=== PATIENT | male | born 1980 | race Caucasian/White ===

== ENCOUNTER 2025-07-27 14:00 | Outpatient (REF) | payer MEDICAID, SELFPAY ==
[2025-07-27 16:20] LABS: Uric Acid 9.1 mg/dL (3.7-9.2)
[2025-07-27 17:02] LABS: Abs Immature Grans 0.08 10^3/uL (0.0-0.06); HCT 47.0 % (40.0-50.0); HGB 14.9 g/dL (13.5-17.5); Immature Grans % 0.5 %; MCH 27.1 pg (27.0-33.0); MCHC 31.7 % (32.0-36.0); MCV 86 fL (80-95); MPV 11.5 fL (8.0-11.0); Platelet Count 423 10^3/uL (130-400); RBC 5.49 10^6/uL (4.36-5.78); RDW 13.1 % (11.8-14.1); RDW-SD 40.7 fL; WBC 14.95 10^3/uL (4.4-10.8)
[2025-07-27 19:29] LABS: Hemoglobin A1C 6.0 % (<5.7)
== END 2025-07-27 14:01 | disposition home or self-care (01) ==
LOC: NCHCN 14:00
PROVIDERS: Visit Provider Student in an Organized Health Care Education/Training Program
DX: M79.672 Pain in left foot (principal); R73.03 Prediabetes
CPT/HCPCS: 83036; 84550; 85025